=== PATIENT | female | born 1985 | race Caucasian/White ===

== ENCOUNTER → 2023-10-17 07:48 | Outpatient (REF) | payer OTHER, SELFPAY | LOC: HWRAD 07:48 | PROVIDERS: ATTENDING PHYSICIAN Student in an Organized Health Care Education/Training Program | DX: R11.0 Nausea (principal) | CPT/HCPCS: 76700 ==

== ENCOUNTER 2023-12-24 18:02 | Emergency (ER) | payer OTHER, SELFPAY ==
[2023-12-24 18:05] VITALS: BP 113/78
[2023-12-24 18:41] LABS: HCG, Serum Qualitative Screen Negative
[2023-12-24 18:46] LABS: AST (SGOT) 495 U/L (14-36); Albumin 4.2 g/dl (3.5-5.0); Alkaline Phosphatase 246 U/L (38-126); Blood Urea Nitrogen 14 mg/dl (7-17); Calcium 9.1 mg/dl (8.4-10.2); Carbon Dioxide 25 mmol/L (22-30); Chloride 105 mmol/L (98-107); Glucose 119 mg/dl (70-99); Lipase 400 U/L (23-300); Potassium 3.8 mmol/L (3.5-5.1); Sodium 140 mmol/L (135-145); Total Bilirubin 0.6 mg/dl (0.2-1.3); Total Protein 6.9 g/dl (6.3-8.2); eGFR > 60.00
[2023-12-24 19:03] LABS: ALT (SGPT) 906 U/L (0-35)
[2023-12-24 19:13] LABS: Hematocrit 34.8 % (37.0-47.0); Hemoglobin 12.1 g/dL (12.0-16.0); Mean Corp Hgb Conc. 34.8 g/dL (33.0-37.0); Mean Corpuscular Volume 86.1 fL (81.0-99.0); Mean Platelet Volume 9.5 fL (7.4-10.4); Platelet Count 227 10^3/uL (130-400); Red Blood Cell Count 4.04 10^6/uL (4.20-5.40); Red Cell Dist. Width 12.7 % (11.5-14.5); White Blood Cell Count 6.6 10^3/uL (4.8-10.8)
[2023-12-24 19:14] LABS: Absolute Neutrophils -Man Diff 3.8 10^3/uL (1.4-6.5); Atypical Lymphocytes 12 %; Band Neutrophils 0 % (0-3); Eosinophils 3 % (0-6); Lymphocytes 21 % (20-51); Monocytes 5 % (2-9); Platelets Checked Yes; Segmented Neutrophils 59 % (42-75)
[2023-12-24 19:15] LABS: Normal RBC Morphology Yes; Total Cells Counted 100
--- NOTE | 2023-12-24 19:20 | ED.GENMED ---
History of Present Illness
General
Chief Complaint: Abnormal Lab Value
Time Seen by Provider: 12/24/23 19:18
History of Present Illness
History of Present Illness:
HPI: Patient came here due to abnormal LFTs. She had blood work done 2 days ago�she had 'critically high liver enzyme test'. She reports intermittent right upper quadrant pain for the past 3 months. She also has some weakness and fatigue along
with nausea without vomiting. Reports an uncle who 'of liver disease in his 30s'. She has not been drinking alcohol since in her 20s.
EXAM:
GENERAL: Well appearing in no distress
HEENT: Moist oral mucosa
CARDIOVASCULAR: No murmurs, normal heart rate, regular rhythm, No chest wall tenderness
PULMONARY: No respiratory distress, breath sounds are clear and equal
ABDOMEN: Soft with no peritoneal signs, no tenderness
NEUROLOGIC: Excellent strength all extremities, no coordination deficits
PSYCHIATRIC: Appropriate mental status, normal insight and judgement
EXTREMITIES: Nontender, no edema, moves all extremities equally
SKIN: No rash, no lesions
TIME OF INITIAL ENCOUNTER: 7:10 PM
NUMBER AND COMPLEXITY OF PROBLEMS ADDRESSED AT THE ENCOUNTER
� Chronic conditions affecting care: GERD, Bramwell's
� Acute Exacerbation and/or Progression of Chronic Illness: This is an acute problem
� Differential Diagnosis includes: CBD stone, viral syndrome, hepatitis, Tylenol misuse, rhabdomyolysis, gallstone pancreatitis
AMOUNT AND/OR COMPLEXITY OF DATA TO BE REVIEWED AND ANALYZED
� I performed an independent evaluation of and my interpretation is:
EKG:
CT:
X-rays:
Laboratory Studies: White count 6.6, hemoglobin 12.1, total bili normal AST 495, ALT 96, alk phos 246, lipase 400, CK and mono negative, Tylenol detected
Other: Ultrasound shows no clear acute abnormality but fatty liver suspected
� Review of other/old records: I reviewed old records, the patient's transaminases in 2019 were normal
� Clinical information was obtained by an independent historian: None needed
� Prescriptions/Medications Considered but not given:
� Further testing considered but not performed: Considered keeping patient for MRCP in the morning however the patient declines and does not want to stay here overnight
RISK OF COMPLICATIONS AND/OR MORBIDITY OR MORTALITY OF PATIENT MANAGEMENT
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
� Discussion with other providers: Discussed case with Dr. Lei that she should have an MRCP relatively urgently; discussed case with Dr. Gunter and also sent message to Vimal García, director of MRI to help
expedite MRI.
� Escalation of care including admission/observation vs risk of discharge considered: Transaminases are confirmed to be elevated and alk phos is also elevated. Total bili is normal. She was given IV fluids. Also checking
hepatitis panel but as outpatient it was negative. I offered and considered keeping the patient in the hospital to get MRCP tomorrow however the patient does not want to stay overnight in the hospital. She has minimal symptoms currently. I am
giving the patient a prescription for an MRCP. Dr. Pate said that she will try to also arrange close follow-up.
Past History
Past History
ED Past Medical History: Other (ovarian cysts,)
Phy Exam
Physical Exam
Physical Exam:
See HPI
Course
Orders/Labs/Results
Orders:
Orders
12/24/23 18:12
Test Result ONCE
12/24/23 18:16
Acetaminophen Urgent
Comment: ADD ON
Complete Blood Count/With Diff Urgent
Comprehensive Metabolic Panel Urgent
Creatine Phosphokinase Urgent
Comment: ADD ON
GGTP Urgent
Comment: ADD ON
HCG, Serum Qualitative Screen Urgent
Comment: Notify provider if positive test present
Lipase Urgent
Manual Differential Urgent
Monotest Urgent
Comment: ADD ON
12/24/23 19:18
Add On- LAB Urgent
Tests Added?: acetaminophen; CK
US Abdomen Complete/Upper Urgent
Comment:
Reason For Exam: high transaminases
12/24/23 19:22
0.9% Sodium Chloride 1000 ml [Nss] 1,000 ml IV BOLUS
12/24/23 19:37
Hepatitis A IgM Antibody Urgent
Hepatitis B Core Ab, IgM Urgent
Hepatitis B Surface Antibody Urgent
Hepatitis B Surface Antigen Urgent
Hepatitis C Antibody Urgent
12/24/23 19:46
Add On- LAB Urgent
Tests Added?: monoscreen
12/24/23 22:34
Add On- LAB Urgent
Tests Added?: GGTP
Abnormal Lab Results
12/24/23
18:16
RBC 4.04 L 10^6/uL
(4.20-5.40)
Hct 34.8 L %
(37.0-47.0)
Glucose 119 H mg/dl
(70-99)
AST 495 H U/L
(14-36)
ALT 906 H* U/L
(0-35)
Alkaline Phosphatase 246 H U/L
(38-126)
Lipase 400 H U/L
(23-300)
Acetaminophen < 10 L ug/ml
(10-30)
12/24/23 18:16
12/24/23 18:16
Vital Signs
Initial and Last Documented VS:
Initial Vital Signs
Temp Pulse Resp BP Pulse Ox
98.1 F 98 18 113/78 98
12/24/23 18:05 12/24/23 18:05 12/24/23 18:05 12/24/23 18:05 12/24/23 18:05
Last Documented Vital Signs
Temp Pulse Resp BP Pulse Ox
98.1 F 85 18 114/80 97
12/24/23 18:05 12/24/23 22:43 12/24/23 22:43 12/24/23 22:43 12/24/23 22:43
*Critical Care Note
Total Time (30-74mins, 75-104mins- exclusive of procedures): Not Applicable
ED Attending Note
-
Portions of this chart may have been created with voice recognition software.� Occasional wrong word or��sound alike� substitutions may have occurred due to the inherent limitations of voice recognition software.
Discharge Plan
Departure
Patient Disposition: Home (Routine Discharge)
Date of Disposition: 12/24/23
Time of Disposition: 22:34
Patient with high blood pressure during this ER visit?: Yes
Discharge Problem:
Abnormal LFTs
Prescriptions:
No Action
prednisone 20 mg Tablet
20 mg PO .TAPER
Patient Comments:
12/24/23: Patient states she is on second day today
lorazepam 0.5 mg Tablet
0.5 mg PO HSPRN PRN (Reason: sleep)
ibuprofen [Advil] 200 mg Tablet
200 mg PO Q6HPRN PRN (Reason: headache)
omega 6-qne-tpy-fish oil [Fish Oil] 1,000 (120-180) mg Capsule
1 cap PO DAILYPRN PRN (Reason: supplement)
Referrals:
Zoila Luther, [Family Provider] -
Estefanía Pate MD [Active] - Follow up in 2-3 days
Activity Restrictions/Additional Instructions:
The cause of your symptoms is unclear. I spoke to Dr. Pate and she is asked me to give you a prescription for an MRI with MRCP. I notified Dr. Gunter, the radiologist that he recommended that I contact Vimal García, Director of MRI�I
sent a message to him. Return here if worse or any other concerns.
Interventions
Interventions:
*Risk Screen - Suicide Last Done: 12/24/23 18:09
*General Assessment Last Done: 12/24/23 18:09
*Neglect/Abuse Screening Last Done: 12/24/23 18:09
*ED COVID-19 Vaccine History Last Done: 12/24/23 21:15
*Nursing Disposition Last Done: 12/24/23 22:43
Discharge Date and Time
Discharge Date/Time: 12/24/23 22:45
Print Language: IRISH
[2023-12-24 19:40] VITALS: BP 124/87
[2023-12-24] MEDS: NSS 1000 IV (19:40)
[2023-12-24 20:00] LABS: Monotest Negative (Negative)
[2023-12-24 20:07] LABS: Acetaminophen < 10 ug/ml (10-30); Creatine Phosphokinase 68 U/L (30-135)
[2023-12-24 21:15] VITALS: BP 120/84
[2023-12-24 21:16] VITALS: BMI 23.3
[2023-12-24 22:43] VITALS: BP 114/80
[2023-12-24 23:13] LABS: GGTP 145 U/L (12-43)
[2023-12-25 20:41] LABS: Hepatitis B Surface Antigen Negative (Negative)
[2023-12-25 20:48] LABS: Hepatitis B Core Ab, IgM Negative (Negative)
[2023-12-25 20:57] LABS: Hepatitis B Surface Antibody Positive; Hepatitis C Antibody Negative (Negative)
[2023-12-25 21:33] LABS: Hepatitis A IgM Antibody Negative (Negative)
== END 2023-12-24 22:45 | disposition home or self-care (01) ==
LOC: EMR 18:02
PROVIDERS: Student in an Organized Health Care Education/Training Program; EMERGENCY PHYSICIAN Emergency Medicine; FAMILY PHYSICIAN Student in an Organized Health Care Education/Training Program
DX: R94.5 Abnormal results of liver function studies (principal); R10.11 Right upper quadrant pain; R53.1 Weakness; R53.83 Other fatigue; R11.0 Nausea; R03.0 Elevated blood-pressure reading, without diagnosis of hypertension; N83.209 Unspecified ovarian cyst, unspecified side; Z88.1 Allergy status to other antibiotic agents; Z88.8 Allergy status to other drugs, medicaments and biological substances
CPT/HCPCS: 99284; 96360; 76700; 80053; 80143; 82550; 82977; 83690; 84703; 85025; 86308; 86705; 86706; 86709; 86803; 87340

== ENCOUNTER 2023-12-26 17:24 | Inpatient (IN) | payer OTHER, SELFPAY ==
[2023-12-26 14:56] VITALS: BP 113/77
--- NOTE | 2023-12-26 15:06 | ED.GENMED ---
History of Present Illness
<Melody Brink PA-C - Last Filed: 12/26/23 17:18>
General
Chief Complaint: Abdominal Symptoms
Source: patient
Exam Limitations: none
Time Seen by Provider: 12/26/23 15:05
Nursing documentation reviewed up to this point in time: agreed with
History of Present Illness
History of Present Illness:
38-year-old female with past medical history of GERD presents emergency department today with concerns of persistent nausea and vomiting for the past few hours. Patient states that she has had multiple months of nausea but has never had associated
dry heaving this severe. Patient reports that she also started developing right upper quadrant pain week. She saw her primary care provider for this issue who ordered lab work as an outpatient and her LFTs were found to be elevated. She was sent
to the emergency department where testing was performed. This was 2 days ago. She was then set up for GI follow-up this morning. Patient did go to the appointment where further testing was ordered however patient started develop severe dry
heaving, nausea, vomiting and feels like her right upper quadrant pain became worse. Patient states that she has a order for MRCP. Patient denies any marijuana use any fevers or chills, any constipation or diarrhea, any recent travel to the
country. Patient is a healthcare worker. Patient states that she has been able to get food down the past few days and then today she has not able to eat anything.
Past History
<Melody Brink PA-C - Last Filed: 12/26/23 17:18>
Past History
ED Past Medical History: Other (ovarian cysts,)
Review of Systems
<Melody Brink PA-C - Last Filed: 12/26/23 17:18>
Review of Systems
All Other Systems: ROS reviewed and negative except as documented in HPI and ROS
Phy Exam
<Melody Brink PA-C - Last Filed: 12/26/23 17:18>
Physical Exam
Physical Exam:
General: Patient is well appearing and in no acute distress; non-toxic
Skin: Warm and dry, no rashes or lesions
Head: Normocephalic, atraumatic
Eyes: Sclera non-icteric. EOMs intact.
Cardiac: Regular rate
Peripheral Vascular: N
Pulm: Normal respiratory effort, no wheezes, rales, rhonchi
Abdomen: Tenderness to palpation and guarding in the right upper quadrant. No palpable abdominal masses. Normoactive bowel sounds.
Musculoskeletal:
Neuro: CN II-XII intact, no focal neurologic deficits.
Psychiatric: Appropriate mood and affect.
Course
Mustaphalt;Melody Brink PA-C - Last Filed: 12/26/23 17:18>
Orders/Labs/Results
Orders:
Orders
12/26/23 15:00
Test Result ONCE
12/26/23 15:22
Ondansetron Injectable [Zofran] 4 mg .ROUTE .STK-MED ONE
12/26/23 15:24
0.9% Sodium Chloride 1000 ml [Nss] 1,000 ml IV BOLUS
Ondansetron Injectable [Zofran] 4 mg IV NOW STA
12/26/23 15:34
Complete Blood Count/With Diff Urgent
Comprehensive Metabolic Panel Urgent
HCG, Serum Qualitative Screen Urgent
Lipase Urgent
Manual Differential Urgent
Abnormal Lab Results
12/26/23
15:34
Segmented Neutrophils 28 L %
(42-75)
Glucose 120 H mg/dl
(70-99)
AST 396 H U/L
(14-36)
ALT 905 H* U/L
(0-35)
Alkaline Phosphatase 237 H U/L
(38-126)
Lipase 317 H U/L
(23-300)
12/26/23 15:34
12/26/23 15:34
Vital Signs
Initial and Last Documented VS:
Initial Vital Signs
Temp Pulse Resp BP Pulse Ox
98.3 F 98 18 113/77 100
12/26/23 14:56 12/26/23 14:56 12/26/23 14:56 12/26/23 14:56 12/26/23 14:56
Last Documented Vital Signs
Temp Pulse Resp BP Pulse Ox
98.3 F 98 18 113/77 100
12/26/23 14:56 12/26/23 14:56 12/26/23 14:56 12/26/23 14:56 12/26/23 14:56
<Prashanth Ferrer, DO - Last Filed: 12/26/23 15:58>
Orders/Labs/Results
Orders:
Orders
12/26/23 15:00
Test Result ONCE
12/26/23 15:22
Ondansetron Injectable [Zofran] 4 mg .ROUTE .STK-MED ONE
12/26/23 15:24
0.9% Sodium Chloride 1000 ml [Nss] 1,000 ml IV BOLUS
Ondansetron Injectable [Zofran] 4 mg IV NOW STA
12/26/23 15:34
Complete Blood Count/With Diff Urgent
Comprehensive Metabolic Panel Urgent
HCG, Serum Qualitative Screen Urgent
Lipase Urgent
Manual Differential Urgent
Abnormal Lab Results
12/26/23
15:34
Segmented Neutrophils 28 L %
(42-75)
Glucose 120 H mg/dl
(70-99)
AST 396 H U/L
(14-36)
ALT 905 H* U/L
(0-35)
Alkaline Phosphatase 237 H U/L
(38-126)
Lipase 317 H U/L
(23-300)
12/26/23 15:34
12/26/23 15:34
Vital Signs
Initial and Last Documented VS:
Initial Vital Signs
Temp Pulse Resp BP Pulse Ox
98.3 F 98 18 113/77 100
12/26/23 14:56 12/26/23 14:56 12/26/23 14:56 12/26/23 14:56 12/26/23 14:56
Last Documented Vital Signs
Temp Pulse Resp BP Pulse Ox
98.3 F 98 18 113/77 100
12/26/23 14:56 12/26/23 14:56 12/26/23 14:56 12/26/23 14:56 12/26/23 14:56
Mustaphalt;Melody Brink PA-C - Last Filed: 12/26/23 17:18>
MDM/Problems Addressed
Differential Diagnosis Includes:
autoimmune hepatitis, celiac disease, biliary colic, drug induced hepatoxicity, Ebstein kunz virus, vascular disease, fatty liver disease
MDM/Problems Addressed:
38 y/o female with past medical history of GERD presents to the emergency department today with concerns of right upper quadrant pain, nausea, vomiting. This has been ongoing issues but has gotten acutely worse this past week. Here in emergency
department, she is actively dry heaving. She was seen here 2 days ago was found to have an ALT of 906, AST 396, slightly elevated lipase, normal multiple bili. She had negative hepatitis testing at time, negative for quadrant ultrasound, negative
mono, did have elevated GGT. Her lab work is similar today. She was treated with Zofran on reassessment, her dry heaving has resolved. She was offered admission 2 days ago however declined and preferred to do an outpatient workup. She saw "[facility]"Mannie CARTY this morning and they ordered further workup but patient reports that when she went home today from the appointment, she got a sudden onset of severe dry heaving and nausea. Patient will require further workup for this issue will need to
be admitted for management of her symptoms. Digital Media Designer on-call aware. Patient referred for admission.
Chronic conditions affecting care:
migraines, GERD,
<Melody Brink PA-C - Last Filed: 12/26/23 17:18>
*Pulse Oximetry
Patient hypoxic: no
*Critical Care Note
Total Time (30-74mins, 75-104mins- exclusive of procedures): Not Applicable
Data Reviewed
Review of Other/Old Records Reveals: Records (reviewed ER physician documentation from 12/24/23, patient evaluated for abnormal LFTs, RUQ pain) and Discharge Summary (No hospital discharge summaries to review )
Source: patient and records
Prescriptions/Medications Considered But Not Given:
n/a
Further Testing Considered But Not Given:
n/a
<Melody Brink PA-C - Last Filed: 12/26/23 17:18>
Patient Management
Escalation/DeEscalation of care consider admission/obs:
Patient referred for admission
ED Attending Note
<Melody Brink PA-C - Last Filed: 12/26/23 17:18>
-
Portions of this chart may have been created with voice recognition software.� Occasional wrong word or��sound alike� substitutions may have occurred due to the inherent limitations of voice recognition software.
<Prashanth Ferrer DO - Last Filed: 12/26/23 15:58>
ED Attending Note
Patient seen and examined by attending physician: Yes
I performed the substantive portion of visit, reviewed & personally made and approve the management plan that is documented in note by myself or NANY.: Yes
ED Attending Note:
I have seen and evaluated the patient with a [id number] encounter. I have spoken to the advance practicer provider and involved in the medical history, the physical exam, medical decision making.
Evaluation and management service: agree unless noted differently below.
Results interpretation: agree unless noted differently below.
Focused HPI: 38-year-old female presenting with persistent abdominal discomfort and nausea and vomiting. She was recently seen in the emergency department and found to have elevated LFTs. Patient went to go home for outpatient workup. She saw GI
and had outpatient prescription for MRCP but it needs preauthorization
Physical exam: Uncomfortable, actively dry heaving
Medical Decision Making: Given her elevated LFTs with her symptoms, will admit for MRCP
Discharge Plan
Departure
Patient Disposition: Admit
Date of Disposition: 12/26/23
Time of Disposition: 16:35
Admit to: Med/Surg
Presentation/result/management discussed w/ accepting MD/DO: Hospitalist
Patient with high blood pressure during this ER visit?: No
Condition: Fair
Discharge Problem:
Elevated LFTs
Prescriptions:
No Action
lorazepam 0.5 mg Tablet
0.5 mg PO HSPRN PRN (Reason: sleep)
Patient Comments:
12/26/23: last filled 12/22/23 for 14 tablets over 14 days
ibuprofen [Advil] 200 mg Tablet
200 mg PO Q6HPRN PRN (Reason: headache)
omega 4-aav-tpc-fish oil [Fish Oil] 1,000 (120-180) mg Capsule
1 cap PO DAILYPRN PRN (Reason: supplement)
Referrals:
Cesar Rowell MD [Family Provider] -
Interventions
Interventions:
*Risk Screen - Suicide Last Done: 12/26/23 14:56
*General Assessment Last Done: 12/26/23 14:56
*Neglect/Abuse Screening Last Done: 12/26/23 14:56
*ED COVID-19 Vaccine History Last Done: 12/26/23 15:37
OG-Xvtbbr-Smhofmkbyz Assessment Last Done: 12/26/23 15:36
Discharge Date and Time
Print Language: MARSHALLESE
[2023-12-26] MEDS: NSS 1000 IV (15:35)
[2023-12-26] MEDS: ZOFRAN 4 MG IV ×2 (15:35→18:49)
[2023-12-26 15:51] LABS: Hematocrit 38.1 % (37.0-47.0); Hemoglobin 13.4 g/dL (12.0-16.0); Mean Corp Hgb Conc. 35.2 g/dL (33.0-37.0); Mean Corpuscular Hgb 30.7 pg (27.0-31.0); Mean Corpuscular Volume 87.2 fL (81.0-99.0); Mean Platelet Volume 9.5 fL (7.4-10.4); Platelet Count 250 10^3/uL (130-400); Red Blood Cell Count 4.37 10^6/uL (4.20-5.40); Red Cell Dist. Width 12.6 % (11.5-14.5); White Blood Cell Count 6.7 10^3/uL (4.8-10.8)
[2023-12-26 15:55] LABS: HCG, Serum Qualitative Screen Negative
[2023-12-26 16:07] LABS: AST (SGOT) 396 U/L (14-36); Albumin 4.5 g/dl (3.5-5.0); Alkaline Phosphatase 237 U/L (38-126); Blood Urea Nitrogen 11 mg/dl (7-17); Calcium 9.6 mg/dl (8.4-10.2); Carbon Dioxide 23 mmol/L (22-30); Chloride 104 mmol/L (98-107); Glucose 120 mg/dl (70-99); Potassium 3.8 mmol/L (3.5-5.1); Sodium 141 mmol/L (135-145); Total Bilirubin 0.7 mg/dl (0.2-1.3); Total Protein 7.6 g/dl (6.3-8.2); eGFR > 60.00
[2023-12-26 16:22] LABS: ALT (SGPT) 905 U/L (0-35); Lipase 317 U/L (23-300); Segmented Neutrophils 28 % (42-75)
[2023-12-26 16:23] LABS: Absolute Neutrophils -Man Diff 1.8 10^3/uL (1.4-6.5); Atypical Lymphocytes 20 %; Band Neutrophils 0 % (0-3); Lymphocytes 47 % (20-51); Monocytes 5 % (2-9); Platelets Checked Yes
[2023-12-26 16:24] LABS: Normal RBC Morphology Yes; Total Cells Counted 100
--- NOTE | 2023-12-26 16:39 | HPS.HSE ---
Family Physician
-
Family Physician: Cesar Rowell
Chief Complaint
-
right upper quad tenderness assoicated with nausea.
History of Present Illness
38 year old with PMH for WANG, GERD presented to us with persistent nausea and hives for past few months. it progressively got worse this week. today she vomited bile ten times. stated right upper quadrant tenderness to touch only. denied decreased
appetite. patient denied any weight gain or loss. patient stated lots of belching as well as reflux gag and cough. she is been taking Advil for WANG. stated dizzy and weak. He was evaluated by GI today. Patient stated since then, she developed
severe dry heaving, nausea and vomiting and right upper quadrant pain. Patient denied any fever, chills, chest pain, short of breath. Patient denied any diarrhea, constipation. Patient denied any dysuria or hematuria.
In the ER noted to have elevated LFTs, lipase. Admitting for further management
Medical History
Past Medical History
Past Medical History: Reports Other
Additional Past Medical History:
tension WANG
IBS
Past Surgical History: Reports Other
Additional Past Surgical History:
breast augmentation
Social History
Tobacco: Non-smoker
Alcohol: Occasional
Drug: None
Personal:
Living: With Family
Employment: Employed
Family History
Family History: Other (Paternal uncle with liver disease)
Allergies / Home Medications
Allergies reflects when Allergies were last updated in [employer].
Home Medications with original date entered in [employer]
Allergy/Medication List:
Allergies
Allergy/AdvReac Type Severity Reaction Status Date / Time
azithromycin [From Zithromax] Allergy Hives Verified 12/26/23 14:55
polyethylene glycol Allergy Anaphylaxis Verified 12/26/23 14:55
Home Medications
ibuprofen 200 mg tablet (Advil) 200 mg PO Q6HPRN PRN headache 12/24/23
lorazepam 0.5 mg tablet 0.5 mg PO HSPRN PRN sleep 12/24/23
omega 3-grd-kua-fish oil 1,000 mg (120 mg-180 mg) capsule (Fish Oil) 1 cap PO DAILYPRN PRN supplement 12/24/23
Review of Systems
-
Constitutional: Reports No Symptoms
EENT: Reports No Symptoms
Respiratory: Reports No Symptoms
Cardiac: Reports No Symptoms
Abdomen/GI: Reports Abdominal Pain, Nausea and Vomiting
: Reports No Symptoms
Musculoskeletal: Reports No Symptoms
Skin: Reports No Symptoms
Neurological: Reports No Symptoms
Endocrine: Reports No Symptoms
Hematologic/Lymphatic: Reports No Symptoms
Psych: Reports No Symptoms
Physical Exam
Vital Signs
Vital Signs
Temp Pulse Resp BP Pulse Ox
98.3 F 98 18 113/77 100
12/26/23 14:56 12/26/23 14:56 12/26/23 14:56 12/26/23 14:56 12/26/23 14:56
Physical Exam
General: Well Developed, Well Nourished and No Apparent Distress
HEENT: NormoCephalic, Moist mucous membranes and Atraumatic
Respiratory: Clear
Cardiac: S1/S2 and Regular Rhythm; No Murmur or Rub
GI: Soft, Non Tender, Non Distended and Normal Bowel Sounds; No Organomegaly
Rectal: Deferred by Provider
Musculoskeletal: No Clubbing, No Cyanosis and No Edema
Skin: No Rash
Neuro: AO x 3 and Nonfocal/grossly intact
Psych: Calm
Laboratory Results
-
12/26/23 15:34
12/26/23 15:34
Laboratory Results
Total Bilirubin 0.7 mg/dl (0.2-1.3) 12/26/23 15:34
AST 396 U/L (14-36) H 12/26/23 15:34
ALT 905 U/L (0-35) H* 12/26/23 15:34
Alkaline Phosphatase 237 U/L (38-126) H 12/26/23 15:34
Lipase 317 U/L (23-300) H 12/26/23 15:34
Data Reviewed
-
Ultrasound: Report Reviewed by me
Lab Data: Labs Reviewed by me
Impression/Plan
-
#right upper quadrant pain associated with N/v
-ast 396, ALT 9.5, ALK 237 lipase 317
-hep panel negative
-US abdomen (12/23) with Mildly contracted gallbladder without stones or wall thickening. Negative sonographic Garvey's sign. No findings to suggest biliary tract dilatation.Possible mild diffuse fatty liver.
-Clear liquid diet for now
- Zofran as needed for nausea vomiting
-Dilaudid prn for pain
-GI consult
# DVT prophylaxis
-SCD
# CODE STATUS
-Full code
--- NOTE | 2023-12-26 17:30 | W.PN.UPDATE ---
Update Note
Progress Note Update
This is an addendum to the H&P written by Monalisa Henson on 12/26/2023. Patient seen and examined independently with APARTMENT LOCATOR.
38-year-old female past medical history of GERD presenting with persistent nausea and dry heaving with headache for past few months with right upper quadrant abdominal pain over the past week. She was evaluate by GI today who ordered transaminitis
workup. She was seen in the emergency room 2 days ago with negative hepatitis testing, ultrasound, mono. She came to the emergency room today for worsening symptoms.
Her uncle at age 30 of liver disease unclear etiology.
Labs show transaminitis with normal bilirubin. Lipase of 300. Concern for underlying autoimmune causes of hepatitis. Clear liquid diet. GI consulted.
[2023-12-26 20:03] VITALS: BP 113/78; BMI 23.1
--- NOTE | 2023-12-26 20:04 | PTCARENOTE ---
Pt arrived onto floor @2002. Pt AAOx3 and able to walk into room without assistance. Pt with no complaints of SOB at this time. Pt oriented to room and call douglas; will continue to monitor.
[2023-12-26 23:13] VITALS: BP 121/76
[2023-12-27 07:04] LABS: Hematocrit 36.5 % (37.0-47.0); Hemoglobin 12.7 g/dL (12.0-16.0); Mean Corp Hgb Conc. 34.8 g/dL (33.0-37.0); Mean Corpuscular Hgb 29.9 pg (27.0-31.0); Mean Corpuscular Volume 85.9 fL (81.0-99.0); Mean Platelet Volume 9.4 fL (7.4-10.4); Platelet Count 200 10^3/uL (130-400); Red Blood Cell Count 4.25 10^6/uL (4.20-5.40); White Blood Cell Count 5.9 10^3/uL (4.8-10.8)
[2023-12-27 07:32] LABS: AST (SGOT) 368 U/L (14-36); Albumin 3.8 g/dl (3.5-5.0); Alkaline Phosphatase 232 U/L (38-126); Blood Urea Nitrogen 7 mg/dl (7-17); Carbon Dioxide 23 mmol/L (22-30); Chloride 108 mmol/L (98-107); Direct Bilirubin 0.2 mg/dl (0.0-0.4); Estimated Creatinine Clearance 81 ml/min; Glucose 98 mg/dl (70-99); Lipase 218 U/L (23-300); Potassium 4.6 mmol/L (3.5-5.1); Sodium 140 mmol/L (135-145); Total Bilirubin 0.7 mg/dl (0.2-1.3); Total Protein 6.5 g/dl (6.3-8.2); eGFR > 60.00
[2023-12-27 07:43] LABS: ALT (SGPT) 842 U/L (0-35)
[2023-12-27 07:52] VITALS: BP 95/64
--- NOTE | 2023-12-27 08:17 | CON.GI ---
Consultation
-
Date/Time Consultation Requested: 12/26/23 @ 19:55
Date/Time Consultation Performed: 12/27/23 @ 08:20
Requesting Provider: RADHA Manuel
Performing Provider: RADHA Zimmerman; Dr. Kaylynn Christiansen
Reason for Consultation: RUQ pain, nausea, abnormal LFT's
Medical History
Chief Complaint / HPI
Chief Complaint: RUQ pain, nausea
History of Present Illness:
The patient is a 38-year-old female with a past medical history significant for headaches, who presented to the emergency room on 12/25 with complaints of right upper quadrant pain and ongoing nausea. We are being asked to evaluate for the
presenting symptoms along with abnormal LFTs. Upon review of prior records, the patient had been seen by our physician expanded duty dental assistant Cece Smart in the office on 12/25 for evaluation of abnormal liver enzymes and ongoing symptoms of abdominal pain and
nausea. She had been feeling generally unwell the past few weeks with headaches, chills, and nausea. She had ultrasound done on 12/23 which showed mildly contracted gallbladder without stones or gallbladder wall thickening, and findings suggestive
of fatty liver disease. There was no biliary ductal dilation seen. Labs from 12/23 reviewed showing: hepatitis panel negative for hepatitis A, B, and C, with immunity to hep B. Monoscreen was negative. Tylenol level less than 10. GGT 145, AST
495, ALT 906, alk phos 246, total bilirubin 0.6, lipase 400. Plan was to check underlying liver workup and MRI with MRCP for further evaluation. She reports that her symptoms initially started in August with onset of persistent headaches. This
continued and she saw her primary care physician in September who ordered blood work which showed an ALT of 47 otherwise was normal. She continues with headaches and intermittent nausea, which she thought was possibly secondary to motion sickness given
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 She was taking Advil intermittently for the headaches that would come for 3 days at a time then would dissipate. She notes that she also started
with a cough and viral symptoms last week and tested herself for COVID which was negative. She had gone to her PCP who repeated labs and noticed that her LFTs were significantly elevated. She also had a stiff/tense neck as she has been
increasingly stressed at work and was not sleeping well. She was prescribed Ativan which she was using at night to sleep and to see if this would help with her headaches. She also had been described a prednisone taper which she only took 2 days
of. She ended up going to the ER on 12/23 due to ongoing symptoms which did again show increased LFTs primarily her AST in the 900s but she had been feeling better and had been given a slip for an MRCP to be done outpatient. She did see Cece in
the office yesterday as noted above with plan for workup. She denies any history of significant alcohol use, IV drug use, or smoking. She denies any history of known liver disease. She reports her uncle did from liver complications but does
not know the full extent of this background. She denies any history of hepatitis with negative hepatitis serologies recently as above. She notes that she was taking some herbal supplements including milk thistle, drinking Matcha, and using a
supplement called Cymbotika but had stopped these a month ago. Routine labs in the ER showing similar findings with total bilirubin 0.7, AST 396, ALT 905, alk phos 235, lipase 317, hCG negative. No leukocytosis or anemia present. She was placed on
clear liquid diet, and being admitted for further evaluation by GI and symptomatic management.
Past Medical History
Past Medical History: Other (headaches)
Past Surgical History: and Other (breast augmentation)
Social History
Tobacco: Non-Smoker
Alcohol: None
Drug: None
Personal:
Living: With Family
Family History
Family History: Reviewed & Not Pertinent and Other (uncle of liver complications)
Allergies / Home Medications
Allergy/AdvReac Type Severity Reaction Status Date / Time
azithromycin [From Zithromax] Allergy Hives Verified 12/26/23 14:55
polyethylene glycol Allergy Anaphylaxis Verified 12/26/23 14:55
�Medication �Instructions �Recorded
ibuprofen 200 mg tablet (Advil) 200 mg PO Q6HPRN PRN headache 12/24/23
lorazepam 0.5 mg tablet 0.5 mg PO HSPRN PRN sleep 12/24/23
omega 9-bcn-usf-fish oil 1,000 mg 1 cap PO DAILYPRN PRN supplement 12/24/23
(120 mg-180 mg) capsule (Fish Oil)
Review of Systems
-
History Source: Patient
Constitutional: Reports Fatigue
EENT: Reports No Symptoms
Respiratory: Reports Cough
Cardiac: Reports No Symptoms
Abdomen/GI: Reports Abdominal Pain (RUQ) and Nausea
: Reports No Symptoms
Musculoskeletal: Reports No Symptoms
Skin: Reports No Symptoms
Neurological: Reports No Symptoms
Endocrine: Reports No Symptoms
Hematologic/Lymphatic: Reports No Symptoms
Vital Signs
Temp Pulse Resp BP Pulse Ox
98 F 86 16 95/64 99
12/27/23 07:52 12/27/23 07:52 12/27/23 07:52 12/27/23 07:52 12/27/23 07:52
Physical Exam
Exam
General: Well Developed, Well Nourished and No Apparent Distress
HEENT: Normocephalic, Anicteric and Atraumatic
Respiratory: Clear
Cardiac: S1/S2 and Regular Rhythm
Breast: Deferred by me
GI: Soft, Non Distended, Normal Bowel Sounds and Tender (RUQ)
Rectal: Deferred by Provider
Musculoskeletal: No Edema
Skin: Warm and Dry
Neuro: Awake, Alert and Oriented
Psych: Calm
Results
WBC 5.9 10^3/uL (4.8-10.8) 12/27/23 06:36
Hgb 12.7 g/dL (12.0-16.0) 12/27/23 06:36
Hct 36.5 % (37.0-47.0) L 12/27/23 06:36
MCV 85.9 fL (81.0-99.0) 12/27/23 06:36
Plt Count 200 10^3/uL (130-400) 12/27/23 06:36
Sodium 140 mmol/L (135-145) 12/27/23 06:36
Potassium 4.6 mmol/L (3.5-5.1) 12/27/23 06:36
Chloride 108 mmol/L (98-107) H 12/27/23 06:36
Carbon Dioxide 23 mmol/L (22-30) 12/27/23 06:36
BUN 7 mg/dl (7-17) 12/27/23 06:36
Creatinine 0.7 mg/dL (0.6-1.0) 12/27/23 06:36
Calcium 9.0 mg/dl (8.4-10.2) 12/27/23 06:36
Total Bilirubin 0.7 mg/dl (0.2-1.3) 12/27/23 06:36
AST 368 U/L (14-36) H 12/27/23 06:36
ALT 842 U/L (0-35) H* 12/27/23 06:36
Alkaline Phosphatase 232 U/L (38-126) H 12/27/23 06:36
Lipase 218 U/L (23-300) 12/27/23 06:36
Diagnostic Image Results:
12/24/23 US abdomen: Mildly contracted gallbladder without stones or wall thickening. Negative sonographic Garvey's sign. No findings to suggest biliary tract dilatation. Possible mild diffuse fatty liver.
10/17/23 US abdomen: Unremarkable abdominal ultrasound.
Prior GI Procedures:
EGD: none
Colonoscopy: none
Assessment / Plan
-
The patient is a 38-year-old female with a past medical history significant for headaches, who presented to the emergency room on 12/25 with complaints of right upper quadrant pain and ongoing nausea. We are being asked to evaluate for the
presenting symptoms along with abnormal LFTs. She has had ongoing symptoms since August with headaches then progressive with nausea without vomiting which has been intermittent and acute onset of right upper quadrant pain yesterday. She also notes
some viral symptoms last week, with workup from her PCP showing increased LFTs. She had ultrasound imaging which showed no findings to explain her labs. She denies alcohol use. She denies recent travel. 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
and out of patient's homes, but no known exposures. She denies history of hepatitis with negative hepatitis serologies outpatient. Monospot negative. She has been using NSAIDs intermittently for her headaches.
Problem list:
-Abnormal LFTs
-Right upper quadrant pain
-Persistent intermittent nausea without vomiting
-Headaches
Recommendations:
-Etiology of current symptoms/increased LFT's possibly viral versus infectious versus less likely biliary etiology versus effects from herbal supplements versus underlying liver component versus other.
---With normal bilirubin I feel obstructive process is less likely, but given her pain would want to rule out
-Plan for MRI with MRCP for further evaluation, possibly to be done today per MRI
-Chronic underlying liver workup ordered and is pending
-Trend LFTs
-Avoid hepatotoxins
-I advised her to avoid herbal supplementation going forward given we do not know the adverse effects from them
-Will check EBV panel
-If above is unrevealing to consider EGD for further evaluation of her nausea given intermittent NSAID use which can be done outpatient
-Further management forthcoming
-
-
Thank you for consultation and allowing me to participate in the patient's care. Please call the automotive power electronics engineer GI physician during the after hours with any questions or concerns.
[2023-12-27 10:32] LABS: Iron 82 ug/dl (37-170)
[2023-12-27 10:41] LABS: Percent Saturation 25 % (20-50); Total Iron Binding Capacity 324 ug/dl (265-497)
[2023-12-27 11:06] LABS: Ferritin 46.7 ng/ml (6.24-137)
--- NOTE | 2023-12-27 11:20 | PTCARENOTE ---
Patient wanted abdominal MRI to be performed STAT, and left AMA after finding out MRI would be unlikely to happen today and after speaking with hospitalist Dr. Javed. Patient was informed of risks of leaving AMA, signed an AMA form, and the IV was
removed. The patient walked out of the hospital without assistance.
--- NOTE | 2023-12-27 11:20 | W.PN.UPDATE ---
Update Note
Progress Note Update
Called to patient's bedside by nurse, patient reporting that she wants to leave AMA because her MRI is not ordered stat.
Discussed with GI who confirmed MRI routine order is appropriate, overall clinical presentation/history symptoms stable vital signs does not warrant a stat order.
Further, though some improvement in transaminitis was noted, patient not appropriate for discharge.
Patient unwilling to stay (also has outpatient MRI ordered prior to presentation here) further report she has 2 yr old child at home that she is unable to get someone to take care of while she's here.
Risks of leaving were discussed, including the possibility of further worsening of symptoms, permanent harm, or even the possibility of . Patient able to verbalize her understanding of risks discussed, nonetheless requested AMA. Patient was
allowed to leave as per her wishes.
--- NOTE | 2023-12-27 11:33 | W.DCSUMMARY ---
Discharge Summary
Discharge Data
Date of Admission: 12/26/23
Date of Discharge: 12/27/23
-
Pending Results: Yes
Additional Pending Results:
Serology Immunology studies pending
Discharge Plan
-
Patient Disposition: Against Medical Advice
Referrals:
Cesar Rowell MD [Family Provider] -
Prescriptions:
No Action
lorazepam 0.5 mg Tablet
0.5 mg PO HSPRN PRN (Reason: sleep)
Patient Comments:
12/26/23: last filled 12/22/23 for 14 tablets over 14 days
ibuprofen [Advil] 200 mg Tablet
200 mg PO Q6HPRN PRN (Reason: headache)
omega 1-vrz-nsg-fish oil [Fish Oil] 1,000 (120-180) mg Capsule
1 cap PO DAILYPRN PRN (Reason: supplement)
Discharge Date and Time
Print Language: COLOMBIAN
[2023-12-28 23:39] LABS: Alpha-1-Antitrypsin 171 mg/dL (90-200)
[2023-12-28 23:40] LABS: Ceruloplasmin 32 mg/dL (16-45)
[2023-12-29 00:33] LABS: EBV-EA (D) Ab IgG <5.0 U/mL (0.0-10.9); EBV-NA IgG >600.0 U/mL (0.0-21.9); EBV-VCA IgM Antibodies 49.1 U/mL (0.0-43.9)
[2023-12-29 08:41] LABS: Mitochondrial M2 Ab, IgG 8.2 Units (0.0-24.9)
[2023-12-29 08:50] LABS: ANA, IgG Reflex to HEp-2 None Detected (None Detected)
== END 2023-12-27 12:10 | disposition left against medical advice (07) | DRG 392 ==
LOC: 4 WEST ACU 17:24
PROVIDERS: Nurse Practitioner Family; Registered Nurse; ADMITTING PHYSICIAN Hospitalist; ATTENDING PHYSICIAN Internal Medicine; CONSULT PHYSICIAN Internal Medicine; EMERGENCY PHYSICIAN Student in an Organized Health Care Education/Training Program; FAMILY PHYSICIAN Family Medicine
DX: R10.11 Right upper quadrant pain (principal); R11.2 Nausea with vomiting, unspecified; G44.209 Tension-type headache, unspecified, not intractable; K21.9 Gastro-esophageal reflux disease without esophagitis; R79.89 Other specified abnormal findings of blood chemistry; K58.9 Irritable bowel syndrome, unspecified; Z88.1 Allergy status to other antibiotic agents
CPT/HCPCS: 80053; 82103; 82248; 82390; 82728; 83516; 83540; 83550; 83690; 84703; 85025; 85027; 86038; 86376; 86381; 86663; 86664; 86665; 96361; 96374; 96376; 99284

== ENCOUNTER → 2023-12-29 11:09 | Outpatient (REF) | payer OTHER, SELFPAY | LOC: RAD 11:09 | PROVIDERS: ATTENDING PHYSICIAN Family Medicine | DX: G44.209 Tension-type headache, unspecified, not intractable (principal); R53.83 Other fatigue; R52 Pain, unspecified; R05.1 Acute cough | CPT/HCPCS: 71046 ==

== ENCOUNTER → 2024-01-10 12:19 | Outpatient (REF) | payer OTHER, SELFPAY | LOC: MRI 3T 12:19 | PROVIDERS: ATTENDING PHYSICIAN Student in an Organized Health Care Education/Training Program | DX: R51.9 Headache, unspecified (principal) | CPT/HCPCS: 70551 ==

== ENCOUNTER → 2024-04-16 08:04 | Outpatient (REF) | payer OTHER, SELFPAY | LOC: PAVMRI 08:04 | PROVIDERS: ATTENDING PHYSICIAN Physician Assistant; FAMILY PHYSICIAN Student in an Organized Health Care Education/Training Program | DX: R79.89 Other specified abnormal findings of blood chemistry (principal) | CPT/HCPCS: 74181 ==